=== PATIENT | female | born 1945 | race African-American/Black ===

== ENCOUNTER 2017-10-23 00:25 | Inpatient (IN) | payer MEDICARE, OTHER ==
[~2017-10-23] VITALS: Ht 170.2 cm; Wt 92.1 kg
[~2017-10-23 00:25] MED LIST: ALBUTEROL SULF8.5 GM INH; BENICAR40 MG ORAL; CARDIZEM90 MG ORAL; FLURBIPROFEN100 MG PO; LEVAQUIN500 MG ORAL; LOSARTAN POTASS50 MG ORAL; METOPROLOL SUC100 MG ORAL; NEURONTIN100 MG ORAL; OYST-CAL D TAB1 EACH PO; PRADAXA150 MG ORAL; ROBAXIN-750750 MG PO
[2017-10-23] MEDS ORDERED: Sodium Chloride 500ML 500 ML IV ONE (00:40)
[2017-10-23] MEDS ORDERED: HYDROmorphone 1mg/ml Carpuject IVP ONE ×2 (00:45→04:45)
[2017-10-23 00:55] LABS: BASOPHILS % (AUTO) 1.4 % (0.0-2.0); EOSINOPHILS % (AUTO) 0.8 % (0.0-3.0); HEMATOCRIT 44.7 % (37.0-47.0); HEMOGLOBIN 14.8 G/DL (12.0-16.0); LYMPHOCYTES % (AUTO) 26.3 % (20.0-45.0); MEAN CORPUSCULAR VOLUME 98 FL (80-99); MONOCYTES % (AUTO) 9.6 % (1.0-10.0); PLATELET COUNT 234 K/UL (150-450); RED BLOOD COUNT 4.55 M/UL (4.20-5.40); RED CELL DISTRIBUTION WIDTH 12.9 % (11.6-14.8); WHITE BLOOD COUNT 8.9 K/UL (4.8-10.8)
[2017-10-23 01:11] LABS: ANION GAP 9 mmol/L (5-15); BLOOD UREA NITROGEN 11 mg/dL (7-18); CALCIUM 10.4 MG/DL (8.5-10.1); CARBON DIOXIDE 26 MMOL/L (21-32); CHLORIDE 106 MMOL/L (98-107); CREATININE 0.6 MG/DL (0.55-1.30); POTASSIUM 4.7 MMOL/L (3.5-5.1); SODIUM 141 MMOL/L (136-145)
[2017-10-23 01:22] LABS: ALANINE AMINOTRANSFERASE 33 U/L (12-78); ALBUMIN 3.4 G/DL (3.4-5.0); ALBUMIN/GLOBULIN RATIO 0.8 (1.0-2.7); ALKALINE PHOSPHATASE 73 U/L (46-116); ASPARTATE AMINO TRANSFERASE 46 U/L (15-37); BILIRUBIN,TOTAL 1.1 MG/DL (0.2-1.0)
[2017-10-23 01:29] LABS: BILIRUBIN,DIRECT 0.1 MG/DL (0.0-0.3)
--- NOTE | 2017-10-23 02:50 | Emergency Room Report ---
History of Present Illness General Chief Complaint: Abdominal Pain Source: Patient Present Illness HPI 72-year-old female presents ED complaining of abdominal pain with vomiting x2 days. Sharp, 10 out of 10, nonradiating. Patient states she has history of small bowel obstruction with previous lysis of adhesions. States last surgery was one year ago. States pain is similar to when she had her bowel obstruction. Denies chest pain or shortness of breath. Denies fevers chills. No other aggravating relieving factors. Denies any other associated symptoms Allergies: Coded Allergies: SULFA (SULFONAMIDE ANTIBIOTICS) (Verified Allergy, Unknown, BLEED, 01/16/11) Patient History Past Medical History: DM, HTN Past Surgical History: pacemaker Pertinent Family History: none Social History: Denies: smoking, alcohol use, drug use Now: No Immunizations: UTD Reviewed Nursing Documentation: PMH: Agreed, PSxH: Agreed Nursing Documentation-PMH Past Medical History: No History, Except For Hx Hypertension: Yes Hx Pacemaker: Yes - Right upper chest Hx Diabetes: Yes Hx Cancer: Yes - BREAST Hx Gastrointestinal Problems: No Hx Neurological Problems: No Review of Systems All Other Systems: negative except mentioned in HPI Physical Exam Vital Signs Date Time Temp Pulse Resp B/P (MAP) Pulse Ox O2 Delivery O2 Flow Rate FiO2 10/23/17 00:20 97.7 80 22 170/69 97 Room Air Sp02 EP Interpretation: reviewed, normal General Appearance: alert, GCS 15, non-toxic, mild distress Head: normocephalic Eyes: bilateral eye normal inspection, bilateral eye PERRL ENT: normal ENT inspection Neck: normal inspection Respiratory: chest non-tender, lungs clear, normal breath sounds, speaking full sentences Cardiovascular #1: regular rate, rhythm, no edema Gastrointestinal: normal bowel sounds, soft, non-distended, no guarding, no rebound, tenderness, other - midline surgical scar Rectal: deferred Genitourinary: no CVA tenderness Musculoskeletal: normal inspection Neurologic: alert, oriented x3, responsive, motor strength/tone normal, sensory intact, speech normal Psychiatric: normal inspection Skin: normal inspection Lymphatic: normal inspection Medical Decision Making Diagnostic Impression: Primary Impression: Bowel obstruction Qualified Codes: K56.609 - Unspecified intestinal obstruction, unspecified as to partial versus complete obstruction ER Course Hospital Course 72-year-old female presents to ED with abdominal pain and vomiting. History of bowel obstruction Differential diagnoses include: BPH, cystitis, pyelonephritis, kidney stone,SBO Clinical course Patient placed on stretcher. silo filler. After initial history and physical I ordered labs, IV fluids, UA, pain medication and CT scan Labs - no leukocytosis, Hb/Hct stable. electrolytes ok. CT abdomen and pelvis - tethering of stomach and transverse colon. concerning for internal bowel herniation. Given prior history of bowel obstruction with lysis of adhesions. Given age and presentation I believe patient should be admitted Case discussed with Dr. Bush and he agreed to accept the patient to his service for further care and support. Dr. Butler agreed to consult on case I feel this is a highly complex case requiring extensive working including EKG/ Rhythm strip, Xray/CT/US, Blood/urine lab work, repeat exams while in ED, and administration of strong opiates/narcotics for pain control, admission to hospital or close patient follow up. Diagnosis - bowel obstruction Patient admitted to floor in serious condition Labs Test 10/23/17 00:50 White Blood Count 8.9 K/UL (4.8-10.8) Red Blood Count 4.55 M/UL (4.20-5.40) Hemoglobin 14.8 G/DL (12.0-16.0) Hematocrit 44.7 % (37.0-47.0) Mean Corpuscular Volume 98 FL (80-99) Mean Corpuscular Hemoglobin 32.5 PG (27.0-31.0) Mean Corpuscular Hemoglobin Concent 33.1 G/DL (32.0-36.0) Red Cell Distribution Width 12.9 % (11.6-14.8) Platelet Count 234 K/UL (150-450) Mean Platelet Volume 7.8 FL (6.5-10.1) Neutrophils (%) (Auto) 62.0 % (45.0-75.0) Lymphocytes (%) (Auto) 26.3 % (20.0-45.0) Monocytes (%) (Auto) 9.6 % (1.0-10.0) Eosinophils (%) (Auto) 0.8 % (0.0-3.0) Basophils (%) (Auto) 1.4 % (0.0-2.0) Sodium Level 141 MMOL/L (136-145) Potassium Level 4.7 MMOL/L (3.5-5.1) Chloride Level 106 MMOL/L (98-107) Carbon Dioxide Level 26 MMOL/L (21-32) Anion Gap 9 mmol/L (5-15) Blood Urea Nitrogen 11 mg/dL (7-18) Creatinine 0.6 MG/DL (0.55-1.30) Estimat Glomerular Filtration Rate mL/min (>60) Glucose Level 126 MG/DL (74-106) Calcium Level 10.4 MG/DL (8.5-10.1) Total Bilirubin 1.1 MG/DL (0.2-1.0) Direct Bilirubin 0.1 MG/DL (0.0-0.3) Aspartate Amino Transf (AST/SGOT) 46 U/L (15-37) Alanine Aminotransferase (ALT/SGPT) 33 U/L (12-78) Alkaline Phosphatase 73 U/L (46-116) Total Protein 7.9 G/DL (6.4-8.2) Albumin 3.4 G/DL (3.4-5.0) Globulin 4.5 g/dL Albumin/Globulin Ratio 0.8 (1.0-2.7) Lipase 187 U/L (73-393) CT/MRI/US Diagnostic Results CT/MRI/US Diagnostic Results : Imaging Test Ordered: CT A/P Impression Tethered appearance of the distal stomach and the mid transverse colon, with luminal attenuation and architectural distortion. Findings raise concern for early internal bowel herniation or volvulization. Alternatively this may be due to post-surgical adhesions. There is no small bowel obstruction. Mildly dilated fluid-filled stomach and transverse colon, without evidence of bowel wall thickening. There is mild mesenteric edema within the right hemiabdomen, associated with the tethered bowel loops. Last Vital Signs Date Time Temp Pulse Resp B/P (MAP) Pulse Ox O2 Delivery O2 Flow Rate FiO2 10/23/17 00:20 97.7 80 22 170/69 97 Room Air Status: improved Disposition: ADMITTED INPATIENT Condition: Serious SEUN DANIEL M.D. Oct 23, 2017 02:50
[2017-10-23 04:34] VITALS: BP 136/67
[2017-10-23 05:15] VITALS: BP 131/89
[2017-10-23] MEDS ORDERED: D5 1/2NS 1,000 ML IV SCH (05:37)
[2017-10-23] MEDS ORDERED: Miralax 17gm pkt ORAL PRN (05:45)
[2017-10-23] MEDS ORDERED: Mylanta II UD 30ml ORAL PRN (05:45)
[2017-10-23] MEDS ORDERED: Nitroglycerin Subl 0.4mg tab SL PRN (05:45)
[2017-10-23] MEDS ORDERED: Morphine Sulfate 2mg/ml Inj IVP PRN (05:45)
[2017-10-23] MEDS ORDERED: LORazepam Inj 2mg/ml 1ml IV PRN (05:45)
[2017-10-23 08:00] VITALS: BP 131/82
[2017-10-23] MEDS: Heparin 5000 units/ml inj SUBQ SCH ×2 (08:19→20:48)
[2017-10-23] MEDS ORDERED: Metoprolol Succinate XL 100mg tab ORAL SCH (09:00)
[2017-10-23] MEDS ORDERED: Losartan 50mg tab ORAL SCH (09:00)
[2017-10-23] MEDS ORDERED: dilTIAZem HCl CD 180mg cap ORAL SCH (09:00)
[2017-10-23] MEDS ORDERED: Pantoprazole Inj IV SCH (09:00)
[2017-10-23] MEDS ORDERED: HYDROmorphone 1mg/ml Carpuject IVP PRN (09:15)
--- NOTE | 2017-10-23 10:34 | Consultation ---
History of Present Illness General Date patient seen: Oct 23, 2017 Chief Complaint: Abdominal Pain Reason for Consultation: Abdominal pain Present Illness HPI 72 year old female with multiple medical comorbidities presented to ED with complaints of worsening abdominal pain. States she was okay until 1-2 days prior to admission when she began to note acute generalized abdominal pain. States pain 10/10 sharp in nature without radiation. Pain associated with no bloody emesis. Has had diarrhea for the past few days. last meal 1 day ago. last BM yesterday and diarrhea. Patient came to ED for evaluation. Labs okay. CT concerning. Of note, patient has complex surgical history. prior c sections. prior SBO requiring urgent laparotomy with lysis of adhesions. believes she had bowel resection during laparotomy but unsure. has been to multiple facilities prior with SBO symptoms. last surgery was at [place] last year. Allergies: Coded Allergies: ACETAMINOPHEN (Verified Allergy, Unknown, 10/23/17) BEET (Verified Allergy, Unknown, 10/23/17) SULFA (SULFONAMIDE ANTIBIOTICS) (Verified Allergy, Unknown, BLEED, 01/16/11) Medication History Scheduled Albuterol Sulfate* (Albuterol Sulfate Mdi*), 2 PUFF INH Q4H Calcium Carbonate/Vitamin D3 (Oyst-Richard D Tablet), 1 EACH PO DAILY, (Reported) Dabigatran Etexilate Mesylate* (Pradaxa*), 150 MG ORAL EVERY 12 HOURS, (Reported ) Diltiazem HCl (Diltiazem HCl), 180 MG ORAL DAILY, (Reported) Gabapentin* (Neurontin*), 100 MG ORAL DAILY Levofloxacin* (Levaquin*), 500 MG ORAL DAILY Losartan Potassium* (Losartan Potassium*), 50 MG ORAL DAILY, (Reported) Methocarbamol* (Robaxin-750*), 750 MG PO TID Metoprolol Succinate* (Metoprolol Succinate*), 100 MG ORAL DAILY, (Reported) Olmesartan Medoxomil (Benicar), 40 MG ORAL DAILY, (Reported) Miscellaneous Medications Flurbiprofen (Flurbiprofen*), 100 MG PO, (Reported) Patient History History Provided By: Patient Healthcare decision maker Resuscitation status Full Code Advanced Directive on File Past Medical/Surgical History Past Medical/Surgical History: (1) History of exploratory laparotomy (2) neck pain with radiculopathy (3) Dizziness (4) Dizziness (5) Chest pain (6) Pneumonia (7) Bowel obstruction (8) Atrial fibrillation Review of Systems Constitutional: Denies: no symptoms, see HPI, chills, sweats, fever, malaise, weakness, other Eye: Denies: no symptoms, see HPI, eye pain, blurred vision, tearing, double vision, nose pain, nose congestion, acuity changes, discharge, other ENT: Denies: no symptoms, see HPI, ear pain, ear discharge, nose pain, nose congestion, throat pain, throat swelling, mouth pain, hearing loss, nasal discharge, other Respiratory: Denies: no symptoms, see HPI, cough, orthopnea, shortness of breath, stridor, wheezing, ORBERT, sputum, other Cardiovascular: Denies: no symptoms, see HPI, chest pain, edema, palpitations, syncope, PND, other Gastrointestinal: Reports: abdominal pain, diarrhea, nausea, vomiting Genitourinary: Denies: no symptoms, see HPI, discharge, dysuria, frequency, hematuria, pain, retention, incontinence, urgency, vag bleed/dc, other Musculoskeletal: Denies: no symptoms, see HPI, back pain, gout, joint pain, joint swelling, muscle pain, muscle stiffness, other Skin: Denies: no symptoms, see HPI, rash, change in color, change in hair/nails , dryness, lesions, other Psychiatric: Denies: no symptoms, see HPI, prior hx, anxiety, depressed feelings, emotional problems, SI, HI, hallucinations, other Neurological: Denies: no symptoms, see HPI, headache, numbness, paresthesia, seizure, tingling, tremors, focal weakness, syncope, dizziness, other Endocrine: Denies: no symptoms, see HPI, excessive sweating, flushing, intolerance to temperature, increased thirst, increased urine, unexplained weight loss, other Hematologic/Lymphatic: Denies: no symptoms, see HPI, anemia, blood clots, easy bleeding, easy bruising, swollen glands, diathesis, other Physical Exam General Appearance: no apparent distress, alert Lines, tubes and drains: peripheral HEENT: normocephalic, PERRL Neck: normal inspection Respiratory/Chest: normal breath sounds, no respiratory distress, no accessory muscle use Cardiovascular/Chest: normal peripheral pulses, normal rate, regularly irregular Abdomen: soft, no organomegaly, no mass, hypoactive bowel sounds, distended, other - prior well healed scars. has defect midline ventral below xyphoid. no significant tenderness but has received pain meds. no rebound. no guarding. Extremities: non-tender, normal inspection Skin Exam: normal pigmentation, warm/dry Neurologic: alert, oriented x 3 Last 24 Hour Vital Signs Date Time Temp Pulse Resp B/P (MAP) Pulse Ox O2 Delivery O2 Flow Rate FiO2 10/23/17 08:41 96.1 10/23/17 08:10 87 131/89 10/23/17 08:00 96.1 66 19 131/82 90 10/23/17 05:21 97 Nasal Cannula 2.0 10/23/17 05:15 97.2 87 20 131/89 97 Nasal Cannula 10/23/17 05:14 97.7 10/23/17 04:35 97.7 89 18 136/67 97 Nasal Cannula 2.0 10/23/17 04:34 97.7 89 18 136/67 97 Nasal Cannula 2.0 10/23/17 00:20 97.7 80 22 170/69 97 Room Air Intake and Output 10/22/17 10/23/17 19:00 07:00 Intake Total 0 ml Balance 0 ml Intake Oral 0 ml Laboratory Tests Test 10/23/17 00:50 White Blood Count 8.9 K/UL (4.8-10.8) Red Blood Count 4.55 M/UL (4.20-5.40) Hemoglobin 14.8 G/DL (12.0-16.0) Hematocrit 44.7 % (37.0-47.0) Mean Corpuscular Volume 98 FL (80-99) Mean Corpuscular Hemoglobin 32.5 PG (27.0-31.0) H Mean Corpuscular Hemoglobin Concent 33.1 G/DL (32.0-36.0) Red Cell Distribution Width 12.9 % (11.6-14.8) Platelet Count 234 K/UL (150-450) Mean Platelet Volume 7.8 FL (6.5-10.1) Neutrophils (%) (Auto) 62.0 % (45.0-75.0) Lymphocytes (%) (Auto) 26.3 % (20.0-45.0) Monocytes (%) (Auto) 9.6 % (1.0-10.0) Eosinophils (%) (Auto) 0.8 % (0.0-3.0) Basophils (%) (Auto) 1.4 % (0.0-2.0) Sodium Level 141 MMOL/L (136-145) Potassium Level 4.7 MMOL/L (3.5-5.1) Chloride Level 106 MMOL/L (98-107) Carbon Dioxide Level 26 MMOL/L (21-32) Anion Gap 9 mmol/L (5-15) Blood Urea Nitrogen 11 mg/dL (7-18) Creatinine 0.6 MG/DL (0.55-1.30) Estimat Glomerular Filtration Rate mL/min (>60) Glucose Level 126 MG/DL (74-106) H Calcium Level 10.4 MG/DL (8.5-10.1) H Total Bilirubin 1.1 MG/DL (0.2-1.0) H Direct Bilirubin 0.1 MG/DL (0.0-0.3) Aspartate Amino Transf (AST/SGOT) 46 U/L (15-37) H Alanine Aminotransferase (ALT/SGPT) 33 U/L (12-78) Alkaline Phosphatase 73 U/L (46-116) Total Protein 7.9 G/DL (6.4-8.2) Albumin 3.4 G/DL (3.4-5.0) Globulin 4.5 g/dL Albumin/Globulin Ratio 0.8 (1.0-2.7) L Lipase 187 U/L (73-393) Height (Feet): 5 Height (Inches): 7.00 Weight (Pounds): 203 Medications Current Medications Medications (Trade) Dose Ordered Sig/Lencho Route PRN Reason Start Time Stop Time Status Last Admin Dose Admin Al Hydroxide/Mg Hydroxide (Mylanta II) 30 ml Q6H PRN ORAL dyspepsia 10/23/17 05:45 11/22/17 05:44 Dextrose (Dextrose 50%) STAT PRN IV Hypoglycemia 10/23/17 05:45 11/22/17 05:44 Dextrose/Sodium Chloride 1,000 ml @ 75 mls/hr [id number] IV 10/23/17 05:37 11/22/17 05:36 10/23/17 06:34 Diltiazem HCl (Cardizem CD) 180 mg DAILY ORAL 10/23/17 09:00 11/22/17 08:59 Diphenhydramine HCl (Benadryl) 25 mg Q6H PRN ORAL Itching/Pruritis 10/23/17 05:45 11/22/17 05:44 Gabapentin (Neurontin) 100 mg DAILY ORAL 10/23/17 09:00 11/22/17 08:59 Heparin Sodium (Porcine) (Heparin 5000 units/ml) 5,000 units EVERY 12 HOURS SUBQ 10/23/17 09:00 11/22/17 08:59 Hydromorphone HCl (Dilaudid) 1 mg Q4H PRN IVP For Pain 10/23/17 09:15 10/30/17 09:14 Lorazepam (Ativan 2mg/ml 1ml) 1 mg EVERY 4 HOURS PRN IV agitation 10/23/17 05:45 10/30/17 05:44 Losartan Potassium (Cozaar) 50 mg DAILY ORAL 10/23/17 09:00 11/22/17 08:59 Metoprolol Succinate (Toprol XL) 100 mg DAILY ORAL 10/23/17 09:00 11/22/17 08:59 10/23/17 08:10 Nitroglycerin (Ntg) 0.4 mg Q5M X 3 DOSES PRN SL Prn Chest Pain 10/23/17 05:45 11/22/17 05:44 Ondansetron HCl (Zofran) 4 mg Q6H PRN IVP Nausea & Vomiting 10/23/17 05:45 11/22/17 05:44 Pantoprazole (Protonix) 40 mg DAILY IV 10/23/17 09:00 11/22/17 08:59 10/23/17 08:09 Polyethylene Glycol (Miralax) 17 gm HSPRN PRN ORAL Constipation 10/23/17 05:45 11/22/17 05:44 Promethazine HCl (Phenergan) 25 mg EVERY 8 HOURS PRN IV refractory nausea 10/23/17 05:45 11/22/17 05:44 Temazepam (Restoril) 15 mg HSPRN PRN ORAL Insomnia 10/23/17 05:45 10/30/17 05:44 Assessment/Plan Problem List: (1) Bowel obstruction Assessment & Plan: 72 year old male with complex surgical history presented with obstructive symptoms. Began with abdominal pain 1-2 days ago. Associated nausea and emesis. having diarrhea. labs okay. CT concerning for obstruction vs herniation. On exam abdomen fairly benign. no peritonitis or significant tenderness/rebound/guarding. -will review CT with radiologist -given exam possibly resolving/improving vs being masked by pain meds. -hold pain meds -will follow exam -if not improved may need laparotomy -thank you for this consultation. will follow with recs. ICD Codes: K56.609 - Unspecified intestinal obstruction, unspecified as to partial versus complete obstruction SNOMED: [id number] Qualifiers: Qualified Codes: K56.609 - Unspecified intestinal obstruction, unspecified as to partial versus complete obstruction Status: not improved Dagoberto Butler Oct 23, 2017 10:34
--- NOTE | 2017-10-23 11:15 | Diagnostic Imaging Report ---
Clinical Indication: Lower abdominal pain Technique: No oral contrast utilized, per emergency room physician request IV administration nonionic contrast. Venous phase spiral acquisition obtained through the abdomen and pelvis. Multiplanar reconstructions were generated. Total dose length product 889.92 mGycm. CTDIvol(s) 17.05 mGy. Dose reduction achieved using automated exposure control Comparison: 09/23/2013 Findings: Proximal colon is mildly distended with gas and fluid The mid transverse colon is seen to loop into the right and then posteriorly,, diving into the posterior mesentery where a short segment of the is narrowed. There is a swirled appearance of the surrounding mesenteric fat an abnormal course of the mesenteric vessels in this area. There is infiltration of the fat of the proximal transverse mesocolon. More distally, the transverse colon takes a normal course, but is dilated and fluid-filled. It is dilated and fluid-filled up to level of the mid sigmoid, where it is somewhat narrowed and there is suggestion of somewhat prominent soft tissue. The distal sigmoid and rectum are normal in caliber. The proximal stomach is also distended, with the antrum appearing elongated and stretched and narrowed. There is tortuous course of the duodenum. A fluid structure in the renetta hepatis probably just represents focally prominent fluid-filled duodenum, but a cyst in this region is also possible. A flattened small bowel loop is seen paralleling the gastric antrum and transverse colon. A few dilated gas-filled small bowel loops are seen in the right lower quadrant. These appear to have transition points in the right lower quadrant which are adjacent and there is likewise some infiltration of the mesenteric fat. There is also some free fluid over the dome of the liver adjacent to the proximal transverse colon. The appendix is not clearly demonstrated. There are a few distal colonic diverticula. The gallbladder contains one or more small gallstones. The liver demonstrates a cyst in segment 8 which is evident previously. The bile ducts are normal in caliber. The pancreas, spleen, adrenals, left kidney are unremarkable. There is a 2 mm calculus within the right kidney. This was not evident on the prior study Subcentimeter low-attenuation lesion is seen within the right kidney, too small to characterize but unchanged from the prior exam. No retroperitoneal or mesenteric mass or adenopathy. Again demonstrated is a large calcified uterine fibroid. Interstitial and groundglass opacities are seen at both lung bases. The heart is enlarged. A pacemaker is seen within the heart. The bones demonstrate degenerative spondylosis changes. Posterior disc protrusion at L4-5 is unchanged Impression: Findings suggestive of complex internal hernia. This almost certainly involves the transverse colon, which is distended proximally and may be partially obstructed. This may also involve the gastric antrum and duodenum. Focally dilated right lower quadrant small bowel loops with adjacent proximal and transitional transition points suggests that there may be small bowel involvement as well. There is infiltration of the transverse mesial colon and right lower quadrant mesenteric fat as well as small amount of free fluid over the dome of the liver, presumably related to such. Findings are new since prior study 09/23/2013 Borderline dilated fluid-filled distal colon, beyond the above area of abnormality, extending to the sigmoid. Equivocal thickening of the sigmoid colon at the level of the transition point, mass in this location a possibility. Consider colonoscopy for further evaluation Colonic diverticulosis. No evidence of diverticulitis Cholelithiasis Large calcified uterine fibroid Interstitial groundglass opacities at both lung bases, nonspecific, could represent areas of pulmonary edema Cardiomegaly Nonobstructive right renal calyceal calculus Other findings as noted, including pacemaker, degenerative spondylosis, liver cyst, probable right renal cyst This agrees with the preliminary interpretation provided overnight by [facility]erad[facility] service.. Findings also discussed by phone with Dr. Butler previously The CT scanner at [facility] is accredited by the [employer] and the scans are performed using protocols designed to limit radiation exposure to as low as reasonably achievable to attain images of sufficient resolution adequate for diagnostic evaluation.
[2017-10-23 11:41] VITALS: BP 126/76
--- NOTE | 2017-10-23 15:16 | GI Initial Consult Note ---
Kourtney Cardona N.PPedro 10/23/17 1516: History of Present Illness General Date patient seen: Oct 23, 2017 Time patient seen: 15:16 Reason for Hospitalization: Abdominal Pain Referring physician: DIMA BASURTO Reason for Consultation: r/o SBO Present Illness HPI 72 year old female with multiple medical comorbidities presented to ED with complaints of worsening abdominal pain. States she was okay until 1-2 days prior to admission when she began to note acute generalized abdominal pain. States pain 10/10 sharp in nature without radiation. Pain associated with no bloody emesis. Has had diarrhea for the past few days. last meal 1 day ago. last BM yesterday and diarrhea. Patient came to ED for evaluation. Labs okay. CT concerning. Of note, patient has complex surgical history. prior c sections. prior SBO requiring urgent laparotomy with lysis of adhesions. believes she had bowel resection during laparotomy but unsure. has been to multiple facilities prior with SBO symptoms. last surgery was at [facility] last year. Home Meds Active Scripts Levofloxacin* (LEVAQUIN*) 500 Mg Tablet, 500 MG ORAL DAILY, #10 TAB Prov:SPIKE WILEY 12/01/15 Methocarbamol* (ROBAXIN-750*) 750 Mg Tablet, 750 MG PO TID, #12 TAB 0 Refills Prov:SOREN TRINIDAD D.O. 01/14/14 Gabapentin* (NEURONTIN*) 100 Mg Capsule, 100 MG ORAL DAILY, #10 CAP 0 Refills Prov:SOREN TRINIDAD D.O. 01/14/14 Albuterol Sulfate* (ALBUTEROL SULFATE MDI*) 8.5 Gm Hfa.aer.ad, 2 PUFF INH Q4H, # 1 INH Prov:SEDA GARCIA 01/25/13 Reported Medications Diltiazem HCl (Diltiazem HCl) 90 Mg Tab, 180 MG ORAL DAILY, TAB 11/28/15 Losartan Potassium* (LOSARTAN POTASSIUM*) 50 Mg Tablet, 50 MG ORAL DAILY, TAB 03/16/14 Calcium Carbonate/Vitamin D3 (OYST-ISABELLA D TABLET) 1 Each Tablet, 1 EACH PO DAILY 01/17/13 Metoprolol Succinate* (METOPROLOL SUCCINATE*) 100 Mg Tab.er.24h, 100 MG ORAL DAILY, #30 TAB 5/4/13 Flurbiprofen (FLURBIPROFEN*) 100 Mg Tablet, 100 MG PO 01/17/13 Olmesartan Medoxomil (BENICAR) 40 Mg Tablet, 40 MG ORAL DAILY 01/17/13 Dabigatran Etexilate Mesylate* (PRADAXA*) 150 Mg Capsule, 150 MG ORAL EVERY 12 HOURS 01/17/13 Med list reviewed/reconciled: Yes Allergies: Coded Allergies: ACETAMINOPHEN (Verified Allergy, Unknown, 10/23/17) BEET (Verified Allergy, Unknown, 10/23/17) SULFA (SULFONAMIDE ANTIBIOTICS) (Verified Allergy, Unknown, BLEED, 01/16/11) Patient History PMH Narrative Past Medical History: DM, HTN Past Surgical History: pacemaker Pertinent Family History: none Social History: Denies: smoking, alcohol use, drug use Now: No Immunizations: UTD Reviewed Nursing Documentation: PMH: Agreed, PSxH: Agreed Nursing Documentation-PMH Past Medical History: No History, Except For Hx Hypertension: Yes Hx Pacemaker: Yes - Right upper chest Hx Diabetes: Yes Hx Cancer: Yes - BREAST Hx Gastrointestinal Problems: No Hx Neurological Problems: No Review of Systems All Other Systems: negative except mentioned in HPI Physical Exam Vital Signs Date Time Temp Pulse Resp B/P (MAP) Pulse Ox O2 Delivery O2 Flow Rate FiO2 10/23/17 00:20 97.7 80 22 170/69 97 Room Air 10/23/17 04:34 2.0 Sp02 EP Interpretation: reviewed, normal Labs Laboratory Tests Test 10/23/17 00:50 10/23/17 10:45 White Blood Count 8.9 K/UL (4.8-10.8) Red Blood Count 4.55 M/UL (4.20-5.40) Hemoglobin 14.8 G/DL (12.0-16.0) Hematocrit 44.7 % (37.0-47.0) Mean Corpuscular Volume 98 FL (80-99) Mean Corpuscular Hemoglobin 32.5 PG (27.0-31.0) H Mean Corpuscular Hemoglobin Concent 33.1 G/DL (32.0-36.0) Red Cell Distribution Width 12.9 % (11.6-14.8) Platelet Count 234 K/UL (150-450) Mean Platelet Volume 7.8 FL (6.5-10.1) Neutrophils (%) (Auto) 62.0 % (45.0-75.0) Lymphocytes (%) (Auto) 26.3 % (20.0-45.0) Monocytes (%) (Auto) 9.6 % (1.0-10.0) Eosinophils (%) (Auto) 0.8 % (0.0-3.0) Basophils (%) (Auto) 1.4 % (0.0-2.0) Sodium Level 141 MMOL/L (136-145) Potassium Level 4.7 MMOL/L (3.5-5.1) Chloride Level 106 MMOL/L (98-107) Carbon Dioxide Level 26 MMOL/L (21-32) Anion Gap 9 mmol/L (5-15) Blood Urea Nitrogen 11 mg/dL (7-18) Creatinine 0.6 MG/DL (0.55-1.30) Estimat Glomerular Filtration Rate mL/min (>60) Glucose Level 126 MG/DL (74-106) H Calcium Level 10.4 MG/DL (8.5-10.1) H Total Bilirubin 1.1 MG/DL (0.2-1.0) H Direct Bilirubin 0.1 MG/DL (0.0-0.3) Aspartate Amino Transf (AST/SGOT) 46 U/L (15-37) H Alanine Aminotransferase (ALT/SGPT) 33 U/L (12-78) Alkaline Phosphatase 73 U/L (46-116) Total Protein 7.9 G/DL (6.4-8.2) Albumin 3.4 G/DL (3.4-5.0) Globulin 4.5 g/dL Albumin/Globulin Ratio 0.8 (1.0-2.7) L Lipase 187 U/L (73-393) Lactic Acid Level 1.60 mmol/L (0.66-2.22) General Appearance: well appearing, no apparent distress, alert Head: normocephalic EENT: PERRL/EOMI, normal ENT inspection Neck: supple Respiratory: normal breath sounds, no respiratory distress Cardiovascular: normal rate Gastrointestinal: normal inspection, non tender, soft, normal bowel sounds, non -distended Rectal: deferred Genitourinary: no CVA tenderness Musculoskeletal: normal inspection, back normal Neurologic: normal inspection, alert, oriented x3, responsive Psychiatric: normal inspection, judgement/insight normal, memory normal Skin: normal inspection, normal color, no rash, warm/dry, palpation normal, well hydrated Lymphatic: normal inspection, no adenopathy Current Medications Current Medications Medications (Trade) Dose Ordered Sig/Lencho Route PRN Reason Start Time Stop Time Status Last Admin Dose Admin Al Hydroxide/Mg Hydroxide (Mylanta II) 30 ml Q6H PRN ORAL dyspepsia 10/23/17 05:45 11/22/17 05:44 Dextrose (Dextrose 50%) STAT PRN IV Hypoglycemia 10/23/17 05:45 11/22/17 05:44 Dextrose/Sodium Chloride 1,000 ml @ 100 mls/hr Q10H IV 10/24/17 05:37 11/23/17 05:36 10/23/17 11:52 Diltiazem HCl (Cardizem CD) 180 mg DAILY ORAL 10/23/17 09:00 11/22/17 08:59 10/23/17 09:00 Diphenhydramine HCl (Benadryl) 25 mg Q6H PRN ORAL Itching/Pruritis 10/23/17 05:45 11/22/17 05:44 Gabapentin (Neurontin) 100 mg DAILY ORAL 10/23/17 09:00 11/22/17 08:59 Heparin Sodium (Porcine) (Heparin 5000 units/ml) 5,000 units EVERY 12 HOURS SUBQ 10/23/17 09:00 11/22/17 08:59 Lorazepam (Ativan 2mg/ml 1ml) 1 mg EVERY 4 HOURS PRN IV agitation 10/23/17 05:45 10/30/17 05:44 Losartan Potassium (Cozaar) 50 mg DAILY ORAL 10/23/17 09:00 11/22/17 08:59 Metoprolol Succinate (Toprol XL) 100 mg DAILY ORAL 10/23/17 09:00 11/22/17 08:59 10/23/17 08:10 Nitroglycerin (Ntg) 0.4 mg Q5M X 3 DOSES PRN SL Prn Chest Pain 10/23/17 05:45 11/22/17 05:44 Ondansetron HCl (Zofran) 4 mg Q6H PRN IVP Nausea & Vomiting 10/23/17 05:45 11/22/17 05:44 Pantoprazole (Protonix) 40 mg DAILY IV 10/23/17 09:00 11/22/17 08:59 10/23/17 08:09 Polyethylene Glycol (Miralax) 17 gm HSPRN PRN ORAL Constipation 10/23/17 05:45 11/22/17 05:44 Promethazine HCl (Phenergan) 25 mg EVERY 8 HOURS PRN IV refractory nausea 10/23/17 05:45 11/22/17 05:44 Temazepam (Restoril) 15 mg HSPRN PRN ORAL Insomnia 10/23/17 05:45 10/30/17 05:44 GI: Plan Problems: (1) Bowel obstruction (2) History of exploratory laparotomy Plan CT AP reviewed, see full report. >> - Findings suggestive of complex internal hernia. - Cholelithiasis fu surgical recs maintain NPO + IVFs pain mgmt ppi fu labs Discussed with Dr. Galicia. Thank you for this patient referral, we will follow. NIR GALICIA 10/28/17 1512: History of Present Illness General Reason for Hospitalization: Abdominal Pain Present Illness Home Meds Active Scripts Levofloxacin* (LEVAQUIN*) 500 Mg Tablet, 500 MG ORAL DAILY, #10 TAB Prov:SPIKE WILEY 12/01/15 Methocarbamol* (ROBAXIN-750*) 750 Mg Tablet, 750 MG PO TID, #12 TAB 0 Refills Prov:SOREN TRINIDAD D.O. 01/14/14 Gabapentin* (NEURONTIN*) 100 Mg Capsule, 100 MG ORAL DAILY, #10 CAP 0 Refills Prov:SOREN TRINIDAD.O. 01/14/14 Albuterol Sulfate* (ALBUTEROL SULFATE MDI*) 8.5 Gm Hfa.aer.ad, 2 PUFF INH Q4H, # 1 INH Prov:KSENIA GARCIAIT 01/25/13 Reported Medications Diltiazem HCl (Diltiazem HCl) 90 Mg Tab, 180 MG ORAL DAILY, TAB 11/28/15 Losartan Potassium* (LOSARTAN POTASSIUM*) 50 Mg Tablet, 50 MG ORAL DAILY, TAB 03/16/14 Calcium Carbonate/Vitamin D3 (OYST-ISABELLA D TABLET) 1 Each Tablet, 1 EACH PO DAILY 01/17/13 Metoprolol Succinate* (METOPROLOL SUCCINATE*) 100 Mg Tab.er.24h, 100 MG ORAL DAILY, #30 TAB 01/17/13 Flurbiprofen (FLURBIPROFEN*) 100 Mg Tablet, 100 MG PO 01/17/13 Olmesartan Medoxomil (BENICAR) 40 Mg Tablet, 40 MG ORAL DAILY 01/17/13 Dabigatran Etexilate Mesylate* (PRADAXA*) 150 Mg Capsule, 150 MG ORAL EVERY 12 HOURS 01/17/13 Allergies: Coded Allergies: ACETAMINOPHEN (Verified Allergy, Unknown, 10/23/17) BEET (Verified Allergy, Unknown, 10/23/17) SULFA (SULFONAMIDE ANTIBIOTICS) (Verified Allergy, Unknown, BLEED, 01/16/11) GI: Plan Plan The patient was seen and examined at bedside and all new and available data was reviewed in the patients chart. I agree with the above findings, impression and plan. (Patient seen earlier today. Signature stamp does not reflect patient encounter time.). - MD Dulce Magdaleno Anh Jhonatan NAva Oct 23, 2017 15:16 NIR GALICIA Oct 28, 2017 15:12
[2017-10-23 16:00] VITALS: BP 154/86
--- NOTE | 2017-10-23 16:09 | Diagnostic Imaging Report ---
Indication: Abdominal pain, abnormal liver function tests Technique: Chicas-scale and duplex images of the upper abdomen were obtained Comparison: Reference made to abdomen and pelvis CT performed earlier the same day Findings: Gallbladder is unremarkable, without stones, wall thickening, nor pericholecystic fluid. Sonographic Bermudez's sign is negative. Common bile duct measures 2 mm in diameter. No intrahepatic biliary ductal dilatation. Liver demonstrates normal echogenicity, no focal abnormality. Small focus of mixed echogenicity just above the right kidney has no correlate on CT, may just represent prominent fat. Portal vein and hepatic veins are patent. Pancreas is unremarkable. Spleen is poorly visualized, due to overlying distended stomach Left kidney measures 12.1 cm in length. Right kidney measures 9.8 cm length. Both kidneys demonstrate normal echogenicity. There is no hydronephrosis. No focal abnormality. Apparent areas of increased and decreased echogenicity in the medial right kidney are not evident on recent CT, probably artifactual. The small cyst and calculus demonstrated in the right kidney on recent CT are not sonographically evident. . Abdominal aorta is partially obscured by bowel gas, visualized portions are non-aneurysmal . Impression: Negative for gallstones or dilated ducts Distended stomach, also demonstrated on recent CT scan Suboptimal visualization of the spleen and abdominal aorta
--- NOTE | 2017-10-23 17:22 | General Progress Note ---
Progress Note Progress Note Surgery: patient seen and examined. CT reviewed with radiology. very interesting and complex CT scan but patient with complex surgical history as well. patient reexamined. abdomen soft, non tender, no rebound, no guarding, benign abdominal exam. patient up and ambulatory. no flatus or BM yet. denies significant pain and states has improved. no n/v/f/c. will continue to monitor with serial exams. low threshold for surgery if does not improve or worsening Dagoberto Butler Oct 23, 2017 17:22
--- NOTE | 2017-10-23 17:25 | Consultation ---
History of Present Illness General Date patient seen: Oct 23, 2017 Chief Complaint: Abnormal findings of lungs on abdomen CT Referring physician: DIMA BASURTO Reason for Consultation: SBO Pulmonary edema Present Illness HPI Patient is a 72 yo female with past medical history of recent pnuemonia a week ago according to the patient ,HTN, DM II and atrial fibrillation who presents from home with a chief complaint of abdominal pain x3 days, with nausea and vomiting. A CT scan obtained in the emergency room of her abdomen revealed abnormalities in the patients lung appearance, I was asked to consult from internal medicine point of view and pulmonary point of view. I have examined the CT scan and it appears the patient may have congested lower lung bases secondary to pnuemonia or pulmonary edema secondary to congestive heart failure. There also appears to be a ground glass appearance to her smaller alveolar structures possible secondary to fluid accumulation or prior pneumonia Further evaluation is needed to further assess the patients cardiovascular and respiratory status. Allergies: Coded Allergies: ACETAMINOPHEN (Verified Allergy, Unknown, 10/23/17) BEET (Verified Allergy, Unknown, 10/23/17) SULFA (SULFONAMIDE ANTIBIOTICS) (Verified Allergy, Unknown, BLEED, 01/16/11) Medication History Scheduled Albuterol Sulfate* (Albuterol Sulfate Mdi*), 2 PUFF INH Q4H Calcium Carbonate/Vitamin D3 (Oyst-Richard D Tablet), 1 EACH PO DAILY, (Reported) Dabigatran Etexilate Mesylate* (Pradaxa*), 150 MG ORAL EVERY 12 HOURS, (Reported ) Diltiazem HCl (Diltiazem HCl), 180 MG ORAL DAILY, (Reported) Gabapentin* (Neurontin*), 100 MG ORAL DAILY Levofloxacin* (Levaquin*), 500 MG ORAL DAILY Losartan Potassium* (Losartan Potassium*), 50 MG ORAL DAILY, (Reported) Methocarbamol* (Robaxin-750*), 750 MG PO TID Metoprolol Succinate* (Metoprolol Succinate*), 100 MG ORAL DAILY, (Reported) Olmesartan Medoxomil (Benicar), 40 MG ORAL DAILY, (Reported) Miscellaneous Medications Flurbiprofen (Flurbiprofen*), 100 MG PO, (Reported) Patient History Healthcare decision maker Resuscitation status Full Code Advanced Directive on File Past Medical/Surgical History Past Medical/Surgical History: (1) Atrial fibrillation (2) Dizziness (3) Dizziness (4) Chest pain (5) Pneumonia (6) neck pain with radiculopathy Review of Systems Constitutional: Reports: malaise, weakness Respiratory: Reports: cough, shortness of breath Gastrointestinal: Reports: abdominal pain Physical Exam General Appearance: moderate distress Lines, tubes and drains: peripheral HEENT: normocephalic, atraumatic, anicteric, PERRL Neck: non-tender, normal alignment, supple, normal inspection Respiratory/Chest: chest wall non-tender, accessory muscle use, crackles/rales , expiratory wheezing, inspiratory wheezing, pleural rub Breasts: no masses Cardiovascular/Chest: normal peripheral pulses, normal rate, regular rhythm, no JVD Abdomen: abnormal bowel sounds, distended, guarding, rebound, tender Genitourinary/Rectal: normal genital exam, normal rectal exam Extremities: normal range of motion, non-tender, normal inspection, no calf tenderness Skin Exam: normal pigmentation, warm/dry 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, responsive, motor weakness, disoriented Last 24 Hour Vital Signs Date Time Temp Pulse Resp B/P (MAP) Pulse Ox O2 Delivery O2 Flow Rate FiO2 10/23/17 16:00 97.7 66 18 154/86 94 10/23/17 11:41 96.6 70 19 126/76 90 10/23/17 09:00 87 131/89 10/23/17 08:41 96.1 10/23/17 08:10 87 131/89 10/23/17 08:00 96.1 66 19 131/82 90 10/23/17 05:21 97 Nasal Cannula 2.0 10/23/17 05:15 97.2 87 20 131/89 97 Nasal Cannula 10/23/17 05:14 97.7 10/23/17 04:35 97.7 89 18 136/67 97 Nasal Cannula 2.0 10/23/17 04:34 97.7 89 18 136/67 97 Nasal Cannula 2.0 10/23/17 00:20 97.7 80 22 170/69 97 Room Air Intake and Output 10/22/17 10/23/17 19:00 07:00 Intake Total 0 ml Balance 0 ml Intake Oral 0 ml Laboratory Tests Test 10/23/17 00:50 10/23/17 10:45 White Blood Count 8.9 K/UL (4.8-10.8) Red Blood Count 4.55 M/UL (4.20-5.40) Hemoglobin 14.8 G/DL (12.0-16.0) Hematocrit 44.7 % (37.0-47.0) Mean Corpuscular Volume 98 FL (80-99) Mean Corpuscular Hemoglobin 32.5 PG (27.0-31.0) H Mean Corpuscular Hemoglobin Concent 33.1 G/DL (32.0-36.0) Red Cell Distribution Width 12.9 % (11.6-14.8) Platelet Count 234 K/UL (150-450) Mean Platelet Volume 7.8 FL (6.5-10.1) Neutrophils (%) (Auto) 62.0 % (45.0-75.0) Lymphocytes (%) (Auto) 26.3 % (20.0-45.0) Monocytes (%) (Auto) 9.6 % (1.0-10.0) Eosinophils (%) (Auto) 0.8 % (0.0-3.0) Basophils (%) (Auto) 1.4 % (0.0-2.0) Sodium Level 141 MMOL/L (136-145) Potassium Level 4.7 MMOL/L (3.5-5.1) Chloride Level 106 MMOL/L (98-107) Carbon Dioxide Level 26 MMOL/L (21-32) Anion Gap 9 mmol/L (5-15) Blood Urea Nitrogen 11 mg/dL (7-18) Creatinine 0.6 MG/DL (0.55-1.30) Estimat Glomerular Filtration Rate mL/min (>60) Glucose Level 126 MG/DL (74-106) H Calcium Level 10.4 MG/DL (8.5-10.1) H Total Bilirubin 1.1 MG/DL (0.2-1.0) H Direct Bilirubin 0.1 MG/DL (0.0-0.3) Aspartate Amino Transf (AST/SGOT) 46 U/L (15-37) H Alanine Aminotransferase (ALT/SGPT) 33 U/L (12-78) Alkaline Phosphatase 73 U/L (46-116) Total Protein 7.9 G/DL (6.4-8.2) Albumin 3.4 G/DL (3.4-5.0) Globulin 4.5 g/dL Albumin/Globulin Ratio 0.8 (1.0-2.7) L Lipase 187 U/L (73-393) Lactic Acid Level 1.60 mmol/L (0.66-2.22) Height (Feet): 5 Height (Inches): 7.00 Weight (Pounds): 203 Medications Current Medications Medications (Trade) Dose Ordered Sig/Lencho Route PRN Reason Start Time Stop Time Status Last Admin Dose Admin Al Hydroxide/Mg Hydroxide (Mylanta II) 30 ml Q6H PRN ORAL dyspepsia 10/23/17 05:45 11/22/17 05:44 Dextrose (Dextrose 50%) STAT PRN IV Hypoglycemia 10/23/17 05:45 11/22/17 05:44 Dextrose/Sodium Chloride 1,000 ml @ 100 mls/hr Q10H IV 10/24/17 05:37 11/23/17 05:36 10/23/17 11:52 Diltiazem HCl (Cardizem CD) 180 mg DAILY ORAL 10/23/17 09:00 11/22/17 08:59 10/23/17 09:00 Diphenhydramine HCl (Benadryl) 25 mg Q6H PRN ORAL Itching/Pruritis 10/23/17 05:45 11/22/17 05:44 Gabapentin (Neurontin) 100 mg DAILY ORAL 10/23/17 09:00 11/22/17 08:59 Heparin Sodium (Porcine) (Heparin 5000 units/ml) 5,000 units EVERY 12 HOURS SUBQ 10/23/17 09:00 11/22/17 08:59 Lorazepam (Ativan 2mg/ml 1ml) 1 mg EVERY 4 HOURS PRN IV agitation 10/23/17 05:45 10/30/17 05:44 Losartan Potassium (Cozaar) 50 mg DAILY ORAL 10/23/17 09:00 11/22/17 08:59 Metoprolol Succinate (Toprol XL) 100 mg DAILY ORAL 10/23/17 09:00 11/22/17 08:59 10/23/17 08:10 Nitroglycerin (Ntg) 0.4 mg Q5M X 3 DOSES PRN SL Prn Chest Pain 10/23/17 05:45 11/22/17 05:44 Ondansetron HCl (Zofran) 4 mg Q6H PRN IVP Nausea & Vomiting 10/23/17 05:45 11/22/17 05:44 Pantoprazole (Protonix) 40 mg DAILY IV 10/23/17 09:00 11/22/17 08:59 10/23/17 08:09 Polyethylene Glycol (Miralax) 17 gm HSPRN PRN ORAL Constipation 10/23/17 05:45 11/22/17 05:44 Promethazine HCl (Phenergan) 25 mg EVERY 8 HOURS PRN IV refractory nausea 10/23/17 05:45 11/22/17 05:44 Temazepam (Restoril) 15 mg HSPRN PRN ORAL Insomnia 10/23/17 05:45 10/30/17 05:44 Assessment/Plan Status: stable, progressing Assessment/Plan Acute abdominal pain Intractable emesis Small bowel obstruction suggested on CT abdomen Pulmonary edema etiology no known at this time Rule out Pnuemonia Diabetes II HTN PLAN Trial of diuretics and repeat cheset radiograph tomorow Monitor pulse oximetry Auscultation reveals crackles in lung bases NPO IV hydration while npo Pain management Supportive treatment GI requested. SHERRY SAENZ Oct 23, 2017 17:25
--- NOTE | 2017-10-23 18:46 | History and Physical Report ---
DATE OF ADMISSION: 10/23/2017 TIME SEEN: 12 noon. CONSULTANTS: 1. Tereso Conner M.D. 2. Taco Keenan M.D. 3. Dagoberto Butler M.D. CHIEF COMPLAINT: Abdominal pain x3 days, nausea, vomiting, small bowel obstruction. BRIEF HISTORY: The patient is a 72-year-old female who lives at home presents with abdominal pain x3 days, getting worse, had nausea and vomiting throughout, came into [place] ER last night, diagnosed with small bowel obstruction, admitted to medical floor for further treatment. Currently, calm, slightly nauseous, NPO. No complaint. REVIEW OF SYSTEMS: No chest pain. No shortness of breath. Slight nausea and vomiting. No diarrhea. PAST MEDICAL HISTORY: Includes history of small bowel obstruction one year ago and diabetes. G6, P3. PAST SURGICAL HISTORY: Bowel surgery. MEDICATIONS: Dilaudid, Cardizem, Neurontin, Cozaar, Toprol, heparin, Protonix, MiraLAX, and Zofran. ALLERGIES: Tylenol and sulfa. SOCIAL HISTORY: No smoking. No alcohol. No intravenous drug abuse. FAMILY HISTORY: Noncontributory. PHYSICAL EXAMINATION: GENERAL: Calm in bed, oriented x3, no acute distress. VITAL SIGNS: Temperature is 96, pulse 70, respiratory rate 19, blood pressure 126/76. CARDIOVASCULAR: No murmur. LUNGS: Distant and clear. ABDOMEN: Bowel sounds distant. Soft. No guarding. No rigidity. No rebound. EXTREMITIES: No cyanosis, clubbing, or edema. NEUROLOGIC: The patient moves all extremities, slightly weak. LABORATORY AND DIAGNOSTIC DATA: CBC is normal. BMP show glucose 126. AST 46, otherwise BMP is normal. Calcium 10.4. ASSESSMENT: 1. Abdominal pain, nausea, vomiting, small bowel obstruction. 2. Diabetes. PLAN: 1. Continue premeds. 2. NPO. 3. Intravenous fluids. 4. Blood sugar control. 5. OT/PT. 6. Dietary evaluation. 7. CBC and BMP in the morning. 8. Continue to follow this patient medically. Guy Bush D.O. DR: Ramiro JOB#: [id number] CC:
[2017-10-23 20:00] VITALS: BP 160/92
[2017-10-24] MEDS ORDERED: D5 1/2NS 1,000 ML IV SCH (05:37)
--- NOTE | 2017-10-24 13:41 | Discharge Summary ---
Discharge Summary Hospital Course Date of Admission Oct 23, 2017 at 03:38 Date of Discharge Oct 23, 2017 at 22:15 Admitting Diagnosis small bowel obstruction HPI Leana Mcclure is a 72 year old female who was admitted on Oct 23, 2017 at 03:38 for Small Bowel Obstruction Hospital Course [id number] Discharge Discharge Disposition Patient left AMA Discharge Diagnoses: Isatu Melton NP Oct 24, 2017 13:40
--- NOTE | 2017-10-24 15:41 | General Progress Note ---
Progress Note Progress Note Surgery: notified that patient had left AMA because she was upset that she was not being given pain medication. Called patient today to follow up on how she was doing. I was very concerned about her and even more concerned that she had left AMA given findings as noted in prior notes. When speaking with patient I explained concerns. Patient stated that she was very upset that I would not given her pain medication. I had explained to patient multiple times in the hospital that reasoning for no pain medication is to ensure symptoms not progressing ( which would require surgery) and rather they are improving. Did not want to mask clinical deterioration with pain meds and delay intervention. This was explained to her at bedside with family present and she expressed understanding at the time. If pain worsening she would require surgery as noted prior but patient demanded pain medication (of note by name, stated morphine not enough and that she only wanted dilaudid) and when not given right away she signed out AMA prior to evaluation. While trying to express my concerns and discuss returning to hospital for evaluation with patient over the phone she stated that she wanted pain medication and when not given she was very upset and that she feels mistreated. she then proceeded to hang up on me. multiple attempts made to reach patient again but no answer. Dagoberto Butler Oct 24, 2017 15:41
--- NOTE | 2017-10-25 04:30 | Discharge Summary 2 SIG ---
DATE OF ADMISSION: 10/23/2017 DATE OF DISCHARGE: 10/23/2017 CONSULTANTS: 1. Tereso Conner M.D. 2. Dagoberto Butler M.D. 3. Taco Keenan M.D. BRIEF HOSPITAL COURSE: The patient is a 72-year-old female, who lives at home, presented to ED complaining of abdominal pain for three days that has been getting worse with nausea and vomiting. She has past medical history significant for diabetes mellitus, hypertension, and has a pacemaker. On evaluation at ED, blood work did not show any leukocytosis. Hemoglobin and electrolytes were normal. She had a prior history of bowel obstruction. CAT scan of the abdomen and pelvis showed findings suggestive of complex internal hernia with focally dilated right lower quadrant small bowel loops with adjacent proximal and transitional transition suggestive of SBO. Abdominal ultrasound was done, negative for gallstones or dilated ducts. She was seen by Dr. Butler. On examination, the patient had no significant tenderness, although has received a lot of pain medications. Examination fairly benign. There was no peritonitis or no significant tenderness, rebound, or guarding. Pain medications were placed on hold as it can mask the patient's symptoms. She was placed on NPO and was started on IV fluids. Full treatment was not carried out as the patient signed out against medical advice. FINAL DIAGNOSES: 1. Abdominal pain, nausea, and vomiting, possible small bowel obstruction. 2. Diabetes mellitus. DISPOSITION: The patient left AMA. Guy Bush D.O. I have been assigned to dictate discharge summary on this account and I was not involved in the patient's management. Isatu Melton N.P. DR: Saad JOB#: [id number] CC:
== END 2017-10-23 22:15 | disposition left against medical advice (07) | DRG 390 ==
LOC: EDBD 00:25 → EMR 00:44 → 4W 03:38 → EDBEDREQ 04:12
DX: K56.609 Unspecified intestinal obstruction, unspecified as to partial versus complete obstruction (principal); E11.9 Type 2 diabetes mellitus without complications; I10 Essential (primary) hypertension; Z88.2 Allergy status to sulfonamides; Z95.0 Presence of cardiac pacemaker; Z85.3 Personal history of malignant neoplasm of breast; Z53.21 Procedure and treatment not carried out due to patient leaving prior to being seen by health care provider
CPT/HCPCS: 36415; 74177; 76700; 80053; 82248; 82962; 83605; 83690; 85025; 99285; J2405